=== PATIENT | female | born 1985 | race Caucasian/White ===

== ENCOUNTER 2020-12-26 18:59 | Emergency (ER) | payer MEDICAID, OTHER ==
[~2020-12-26] VITALS: Ht 167.6 cm; Wt 99.8 kg
[2020-12-26] MEDS ORDERED: LORazepam 2MG/ML-1ML VIAL ONE (19:04)
[2020-12-26] MEDS ORDERED: LORazepam 2MG/ML-1ML VIAL IV ONE (19:15)
[2020-12-26 21:04] LABS: Basophils # (auto) 0.1 10 ^3/uL (0-0.2); Basophils % (auto) 0.9 % (0.0-2.0); Eosinophils # (auto) 0.1 10 ^3/uL (0-0.8); Eosinophils % (auto) 1.3 % (0.0-7.0); Hemoglobin 14.3 g/dL (12.2-16.2); Lymphocytes # (auto) 3.3 10 ^3/uL (0.4-5.4); Lymphocytes % (auto) 34.8 % (10.0-50.0); Mean Corpuscular Hemoglobin 32.4 pg (28.0-32.0); Mean Corpuscular Hgb Conc. 34.2 g/dL (32.0-36.0); Monocytes # (auto) 0.7 10 ^3/uL (0-1.3); Monocytes % (auto) 7.9 % (0.0-12.0); Neutrophils # (auto) 5.3 10 ^3/uL (1.6-8.6); Neutrophils % (auto) 55.1 % (37.0-80.0); Nucleated Red Blood Cells % 0.3 %; Red Blood Cells 4.42 10^6/uL (4.0-5.20); Red Cell Distribution Width 13.3 % (11.8-14.3); White Blood Cell 9.5 10^3/uL (4.4-10.8)
[2020-12-26 21:08] LABS: Platelet Count (auto) 349 10^3/uL (140-450)
[2020-12-26 21:18] LABS: Albumin 3.6 g/dL (3.4-5.0); BUN/Creatinine Ratio 8.6; Calcium 8.8 mg/dL (8.5-10.1); Potassium 4.1 mmol/L (3.5-5.1)
[2020-12-26 21:21] LABS: Bilirubin, Total 0.3 mg/dL (0.2-1.0); Total Protein 7.9 g/dL (6.4-8.2)
[2020-12-26 22:00] VITALS: BP 100/59
[2020-12-26] MEDS ORDERED: levETIRAcetam 500 MG/5ML INJ IV ONE (22:00)
== END 2020-12-26 23:52 | disposition home or self-care (01) ==
LOC: EDBD 18:59 → ER 19:02
DX: G40.89 Other seizures (principal)
CPT/HCPCS: 36415; 80053; 83735; 85025; 93005; 96365; 96375; 99291; J1953; J2060; J7030; J7060

== ENCOUNTER 2021-02-15 17:02 | Emergency (ER) | payer MEDICAID ==
[~2021-02-15] VITALS: Ht 167.6 cm; Wt 99.8 kg
[2021-02-15] MEDS ORDERED: MORPHINE SULFATE 4 MG/ML SYR/VIAL IV ONE (17:30)
[2021-02-15] MEDS ORDERED: SODIUM CHLORIDE 0.9% 500 ML IV ONE (17:30)
[2021-02-15] MEDS ORDERED: ONDANSETRON HCL 4 MG/2 ML VIAL IV ONE (17:30)
[2021-02-15 18:21] LABS: Basophils # (auto) 0.2 10 ^3/uL (0-0.2); Basophils % (auto) 1.3 % (0.0-2.0); Eosinophils # (auto) 0.5 10 ^3/uL (0-0.8); Eosinophils % (auto) 4.1 % (0.0-7.0); Hematocrit 44.6 % (36.0-46.0); Hemoglobin 15.2 g/dL (12.2-16.2); Lymphocytes # (auto) 3.2 10 ^3/uL (0.4-5.4); Lymphocytes % (auto) 26.4 % (10.0-50.0); Mean Corpuscular Hemoglobin 31.8 pg (28.0-32.0); Mean Corpuscular Hgb Conc. 34.1 g/dL (32.0-36.0); Mean Corpuscular Volume 93.3 fL (80.0-100.0); Monocytes # (auto) 0.9 10 ^3/uL (0-1.3); Monocytes % (auto) 7.4 % (0.0-12.0); Neutrophils # (auto) 7.3 10 ^3/uL (1.6-8.6); Neutrophils % (auto) 60.8 % (37.0-80.0); Nucleated Red Blood Cells % 0.1 %; Red Blood Cells 4.78 10^6/uL (4.0-5.20); Red Cell Distribution Width 13.9 % (11.8-14.3)
[2021-02-15 18:37] LABS: Albumin 3.8 g/dL (3.4-5.0); Anion Gap 8 (5-15); Blood Urea Nitrogen 10 mg/dL (7-18); Calcium 9.4 mg/dL (8.5-10.1); Carbon Dioxide 21 mmol/L (21-32); Chloride 110 mmol/L (98-107); Glucose 94 mg/dL (74-106); Magnesium 2.4 mg/dL (1.6-2.6); Potassium 3.7 mmol/L (3.5-5.1); Sodium 139 mmol/L (136-145)
[2021-02-15 18:42] LABS: Alanine Aminotransferase 19 U/L (13-56); Alkaline Phosphatase 82 U/L (45-117); Aspartate Aminotransferase 9 U/L (15-37); BUN/Creatinine Ratio 8.1; Bilirubin, Total 0.2 mg/dL (0.2-1.0); GFR African American 63 mL/min; GFR Non-African American 52 mL/min; Total Protein 8.5 g/dL (6.4-8.2)
[2021-02-15] MEDS ORDERED: IOHEXOL 350 MG/ML 100ML IJ ONE (18:56)
[2021-02-15 19:50] VITALS: BP 156/101
[2021-02-15] MEDS ORDERED: LORazepam 2MG/ML-1ML VIAL IV ONE (20:00)
== END 2021-02-15 20:29 | disposition home or self-care (01) ==
LOC: EDBD 17:02 → ER 17:02 → EDUNIT# 17:02 → ER 20:29
DX: T88.1XXA Other complications following immunization, not elsewhere classified, initial encounter (principal); R07.89 Other chest pain; D72.829 Elevated white blood cell count, unspecified
CPT/HCPCS: 36415; 71045; 71275; 80053; 83735; 84484; 85025; 85379; 93005; 96361; 96374; 96375; 99285; J2060; J2270; J2405; J7040; Q9967

== ENCOUNTER 2021-04-02 23:59 | Emergency (ER) | payer MEDICAID ==
[~2021-04-02] VITALS: Ht 167.6 cm; Wt 111.1 kg
[2021-04-03 00:02] VITALS: BP 116/77
== END 2021-04-03 00:38 | disposition left against medical advice (07) ==
LOC: ER 23:59
DX: R10.9 Unspecified abdominal pain (principal); K92.0 Hematemesis; Z53.21 Procedure and treatment not carried out due to patient leaving prior to being seen by health care provider